=== PATIENT | male | born 1935 | race African-American/Black ===

== ENCOUNTER 2017-04-21 15:07 | Emergency (ER) | payer MEDICARE, BC ==
[~2017-04-21] VITALS: Ht 172.7 cm; Wt 113.0 kg
[2017-04-21] MEDS ORDERED: BACITRACIN ZINC OINT UDPKT TOP ONE ×2 (15:45→18:45)
[2017-04-21] MEDS ORDERED: IBUPROFEN 600MG TABLET PO ONE (15:45)
[2017-04-21] MEDS ORDERED: HYDROCODONE/ACETAMINOPHEN 5/325MG TABLET PO ONE (15:45)
[2017-04-21] MEDS ORDERED: TETANUS, DIPHTHERIA, PERTUSSIS VAC/PF 0.5ML (>7YR OLD) IM ONE (15:45)
[2017-04-21] MEDS ORDERED: LIDOCAINE HCL 1%/EPI 1:200,000 30 ML VIAL MC ONE (15:45)
[2017-04-21 19:57] VITALS: BP 169/91
== END 2017-04-21 19:59 | disposition home or self-care (01) ==
LOC: ER 15:34
DX: S91.012A Laceration without foreign body, left ankle, initial encounter (principal); M54.5 Low back pain; E11.9 Type 2 diabetes mellitus without complications; V89.2XXA Person injured in unspecified motor-vehicle accident, traffic, initial encounter; Y93.89 Activity, other specified; Y92.89 Other specified places as the place of occurrence of the external cause; Y99.8 Other external cause status
CPT/HCPCS: 12002; 12042; 72100; 73590; 73610; 82962; 90471; 90715; 99284